=== PATIENT | female | born 1965 | race Caucasian/White ===

== ENCOUNTER 2016-05-31 08:47 | Outpatient (CLI) | payer MEDICARE, MEDICAID ==
[2015-07-14 20:13] VITALS: BP 171/96
[~2016-05-31 08:47] MED LIST: BUPIVACAINE HCL/PF 2.5 MG/ML 10ML VIAL IV ONE; TRIAMCINOLONE ACETONID 40MG/ML VIAL ONE
--- NOTE | 2016-05-31 11:50 | SURGICAL PROCEDURE NOTE PAIN ---
SUBJECTIVE: Shantel follows up with me today at [facility]. 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 She continues to complain of some low back pain with pain over the L5 distribution bilaterally, particularly when she is active. She has had conservative therapy. She has had exercise. She has had nonsteroidal anti-inflammatories and opiate pain medications. Her anxiety and depression are well controlled and she sees a therapist on a regular basis. At this point, she is still seeking additional improvement for back and leg pain. She presents today with an ulnar tunnel entrapment of the left arm and has pain, numbness, and tingling in the forearm, wrist, and hand and into the 4th and 5th digits of the left hand with a positive Tinel's sign at the ulnar canal at the elbow. We will plan today for a left ulnar nerve block at the ulnar tunnel and I have also dispensed some information on a spinal cord stimulator, as I believe that particularly the new burst stimulation mode would be greatly beneficial for her considering she continues to have some lower extremity pain in spite of conservative treatment and interventional treatment. We will dispense information on a neurostimulator today and have her follow up in my office with my physician office services assistant and [facility]. NAME OF PROCEDURE: Left ulnar nerve block at the ulnar tunnel. DESCRIPTION OF PROCEDURE: The risks and benefits were discussed with the patient including the risk of infection, bleeding, nerve injury, and headache, as well as the risks of steroid exposure causing hyperglycemia, hypertension, osteoporosis, or increased infectious risks. The patient understood these risks and agreed to proceed. Consent was obtained prior to the procedure. Patient positioned supine on the fluoroscopic procedure table with her arm raised over the left shoulder. Sterile prep and drape was applied. A number 25 -gauge needle was then advanced at the elbow to the ulnar canal and a small paresthesia was elicited. At this point, the needle was withdrawn a millimeter and an injection of triamcinolone and 0.25% bupivacaine was placed. She did tolerate the procedure well. There were no apparent complications. PLAN: 1. Left ulnar nerve block at the ulnar tunnel. 2. She will follow up in my office in the near future. MARK
== END 2016-05-31 09:00 ==
LOC: OUT 08:47
PROVIDERS: ATTEND Anesthesiology Pain Medicine
DX: G56.22 Lesion of ulnar nerve, left upper limb (principal)
CPT/HCPCS: J3301; J3490; 64450; 99213; G0463

== ENCOUNTER 2016-06-03 15:05 | Outpatient (CLI) | payer MEDICARE, MEDICAID ==
[2015-07-14 20:13] VITALS: BP 171/96
== END 2016-06-03 15:10 ==
LOC: LAB 15:05
PROVIDERS: ATTEND Family Medicine
DX: E11.9 Type 2 diabetes mellitus without complications (principal)
CPT/HCPCS: 36415; 83036

== ENCOUNTER 2016-07-06 07:53 | Emergency (ER) | payer MEDICARE, MEDICAID ==
[2016-07-06] MEDS ORDERED: Lidocaine 1% 5ml(IM or SUTURE)(PAIN CLINIC) IJ ONE (08:13)
--- NOTE | 2016-07-06 08:13 | ED Physician Documentation ---
General Adult - HISTORIAN Historian: patient - HPI Chief Complaint: Abscess Onset: days ago Timing: still present, worse Further Comments: yes (Patient has developed a small skin lesion (pimple) tothe right groin area. Last night was about 1-1 1/2 inches in diameter. This AM was noted to be much larger and tender. No drainage was noted. Patient has had a similar lesion that had to be drained several years ago.) - ROS CONST: fever, chills - PAST HX Past History: asthma Other History: other (atrial tachcardia) Surgeries/Procedures: none Allergies/Adverse Reactions: Allergies Allergy/AdvReac Type Severity Reaction Status Date / Time beclomethasone dipropionate Allergy Mild Unverified 05/30/12 16:24 methylprednisolone Allergy Mild Unverified 05/30/12 16:25 Sulfa (Sulfonamide Allergy Verified 07/14/15 13:56 Antibiotics) cefaclor AdvReac Mild Unverified 05/30/12 16:23 Home Medications: Ambulatory Orders Medication Instructions Recorded Albuterol Sulfate [Proair HFA] 2 puff NS Q6H PRN 07/14/15 Canagliflozin [Invokana] 100 mg PO QDAY 07/14/15 Eszopiclone [Eszopiclone] 3 mg PO HS 07/14/15 Fluticasone Propionate [Flonase 2 spray NS QDAY 07/14/15 Nasal [place]] Hydrochlorothiazide [Hydrodiuril] 12.5 mg PO QDAY 07/14/15 LORazepam [Ativan] 1 mg PO TID 07/14/15 Mirtazapine [Mirtazapine] 45 mg PO HS 07/14/15 Montelukast Sodium [Singulair] 10 mg PO QDAY 07/14/15 Spironolactone [Aldactone] 25 mg PO DAILY 07/14/15 Fluconazole [Diflucan] 150 mg PO QD #2 tablet 07/06/16 Levofloxacin [Levaquin] 500 mg PO D #10 tablet 07/06/16 - SOCIAL HX Smoking History: less than 1 pack/day Drug Use: none - FAMILY HX Family History: No - VITAL SIGNS Vital Signs: Vital Signs Temp Pulse Resp BP Pulse Ox 171/96 07/14/15 20:11 - REVIEWED ASSESSMENTS Nursing Assessment Reviewed: Yes Vitals Reviewed: Yes Procedures Blade Size: 11 I & D Procedure: betadine prep, sterile drapes applied Progress: Skin was prepped with betadine and anesthesia was obtained with 1% Xylocaine. Stab wound was made and purulent material was drained and expressed from the wound. Culture was obtained. Wound was packed with 1/4 inch iodiform gauze, wound dresses with ANJEL, telfa and 4x4s. General Adult Physical Exam - PHYSICAL EXAM GENERAL APPEARANCE: mild distress NECK: normal inspection, thyroid normal, supple. No: lymphadenopathy RESPIRATORY: no resp distress, chest non-tender, breath sounds normal. No: wheezes, rales, rhonchi CVS: reg rate & rhythm, heart sounds normal, equal pulses, no murmur, no gallop , PMI nml ABDOMEN: soft, no organomegaly, normal bowel sounds, no abdominal bruit, no distension, non-tender BACK: normal inspection, no CVA tenderness SKIN: warm/dry, normal color, other (large absess tot he right groin area) NEURO: oriented X3, CN's nml as tested, mood/affect nml, cognition normal Discharge Clincal Impression: Abscess Prescriptions: Fluconazole [Diflucan] 150 mg PO QD #2 tablet Levofloxacin [Levaquin] 500 mg PO D #10 tablet Referrals: Janet Jones MD [Primary Care Provider] - 2 Days Additional Instructions: Change dressing as needed. Have packing changed in two days. Take antibiotics as directed. Take diflucan for yeast infection as directed. Home Medications: Ambulatory Orders Albuterol Sulfate [Proair HFA] 2 puff NS Q6H PRN 07/14/15 Canagliflozin [Invokana] 100 mg PO QDAY 07/14/15 Eszopiclone [Eszopiclone] 3 mg PO HS 07/14/15 Fluticasone Propionate [Flonase Nasal [place]] 2 spray NS QDAY 07/14/15 Hydrochlorothiazide [Hydrodiuril] 12.5 mg PO QDAY 07/14/15 LORazepam [Ativan] 1 mg PO TID 07/14/15 Mirtazapine [Mirtazapine] 45 mg PO HS 07/14/15 Montelukast Sodium [Singulair] 10 mg PO QDAY 07/14/15 Spironolactone [Aldactone] 25 mg PO DAILY 07/14/15 Fluconazole [Diflucan] 150 mg PO QD #2 tablet 07/06/16 Levofloxacin [Levaquin] 500 mg PO D #10 tablet 07/06/16 Condition: Stable Disposition: 01 HOME, SELF-CARE Decision to Admit: NO Date of Decison to Admit: 07/06/16 Decision Time: 08:53
[2016-07-06 10:33] VITALS: BP 132/93
== END 2016-07-06 09:10 | disposition home or self-care (01) ==
LOC: ED 07:53
DX: L02.214 Cutaneous abscess of groin (principal); F17.210 Nicotine dependence, cigarettes, uncomplicated
CPT/HCPCS: 10060; 87070; 99284

== ENCOUNTER 2016-07-08 11:09 | Emergency (ER) | payer MEDICARE, MEDICAID ==
--- NOTE | 2016-07-08 12:01 | ED Physician Documentation ---
General Adult - HISTORIAN Historian: patient - HPI Stated Complaint: cyst in groin Chief Complaint: General Adult Additional Information: pt has abscess rt supra labial area drained and packed by DR VÁZQUEZ 2 days ago placed on levaquin and diflucan - now has satellite abscess ext 6 in diameter supra pubic area w/surrounding erythema. saw DR ALMODOVAR just now rec go to [facility] [place]-pt came here. DR ALMODOVAR called said pt error in insstructions. will facilitate tnsf to [facility] Onset: days ago (5) Timing: still present, worse Severity: moderate Further Comments: yes (CALLED DR HERRERA W/C [facility] HE WILL ACCEPT ED. pt will go pvt auto-her choice-appears appropriate.) - ROS CONST: other (chest wheeze cigarettes-afebrile and vs normal) EYES/ENT: denies: problems with vision CVS/RESP: none GI/: none MS/SKIN/LYMPH: none - PAST HX Past History: hypertension, other Other History: diabetes Type 2, other (ptsd fibromyalgia ptsd anxiety bipolar ua incontinence deg disc ds) Allergies/Adverse Reactions: Allergies Allergy/AdvReac Type Severity Reaction Status Date / Time beclomethasone dipropionate Allergy Mild Unverified 05/30/12 16:24 methylprednisolone Allergy Mild Unverified 05/30/12 16:25 Sulfa (Sulfonamide Allergy Verified 07/14/15 13:56 Antibiotics) cefaclor AdvReac Mild Unverified 05/30/12 16:23 Home Medications: Ambulatory Orders Medication Instructions Recorded Albuterol Sulfate [Proair HFA] 2 puff NS Q6H PRN 07/14/15 Canagliflozin [Invokana] 100 mg PO QDAY 07/14/15 Eszopiclone [Eszopiclone] 3 mg PO HS 07/14/15 Fluticasone Propionate [Flonase 2 spray NS QDAY 07/14/15 Nasal [place]] Hydrochlorothiazide [Hydrodiuril] 12.5 mg PO QDAY 07/14/15 LORazepam [Ativan] 1 mg PO TID 07/14/15 Mirtazapine [Mirtazapine] 45 mg PO HS 07/14/15 Montelukast Sodium [Singulair] 10 mg PO QDAY 07/14/15 Spironolactone [Aldactone] 25 mg PO DAILY 07/14/15 Fluconazole [Diflucan] 150 mg PO QD #2 tablet 07/06/16 Levofloxacin [Levaquin] 500 mg PO D #10 tablet 07/06/16 - SOCIAL HX Smoking History: greater than 1 pack/day Alcohol Use: none Drug Use: none - FAMILY HX Family History: No - VITAL SIGNS Vital Signs: Vital Signs Temp Pulse Resp BP Pulse Ox 97.1 F L 103 H 18 134/90 94 07/08/16 11:24 07/08/16 11:24 07/08/16 11:24 07/08/16 11:24 07/08/16 11:24 - REVIEWED ASSESSMENTS Nursing Assessment Reviewed: Yes Vitals Reviewed: Yes General Adult Physical Exam - PHYSICAL EXAM GENERAL APPEARANCE: moderate distress EENT: eye inspection normal NECK: normal inspection RESPIRATORY: wheezes, rales, rhonchi, other (diminished w/wheerzing -= vs = ok) CVS: reg rate & rhythm, heart sounds normal ABDOMEN: soft, non-tender, other (6 inch abscess supra pubic area tendfer- appears satellite from abscess drained andk packed 2 days ago) BACK: normal inspection SKIN: warm/dry, normal color EXTREMITIES: non-tender NEURO: oriented X3, motor nml, sensation nml, mood/affect nml Discharge Clincal Impression: suprapubic and perineal abscess, diabetes controlled, resp wheeze dt cigarettes and probable a Home Medications: Ambulatory Orders Albuterol Sulfate [Proair HFA] 2 puff NS Q6H PRN 07/14/15 Canagliflozin [Invokana] 100 mg PO QDAY 07/14/15 Eszopiclone [Eszopiclone] 3 mg PO HS 07/14/15 Fluticasone Propionate [Flonase Nasal [place]] 2 spray NS QDAY 07/14/15 Hydrochlorothiazide [Hydrodiuril] 12.5 mg PO QDAY 07/14/15 LORazepam [Ativan] 1 mg PO TID 07/14/15 Mirtazapine [Mirtazapine] 45 mg PO HS 07/14/15 Montelukast Sodium [Singulair] 10 mg PO QDAY 07/14/15 Spironolactone [Aldactone] 25 mg PO DAILY 07/14/15 Fluconazole [Diflucan] 150 mg PO QD #2 tablet 07/06/16 Levofloxacin [Levaquin] 500 mg PO D #10 tablet 07/06/16 Comments: ddisc cond w/ DR ALMODOVAR AND DR BEST [facility] SURGEON-SEND W/C VIA ED-DR BEST WILL NOTIFE AND WE WILL REPORT TO W/C-[facility] Condition: Good Disposition: 02 XFER SHT-TRM HOSP Decision to Admit: [id number] Decision Time: 12:18
[2016-07-08 12:40] VITALS: BP 130/89
== END 2016-07-08 12:25 | disposition short-term general hospital (02) ==
LOC: ED 11:09
DX: N73.2 Unspecified parametritis and pelvic cellulitis (principal)
CPT/HCPCS: 99282; 99284

== ENCOUNTER 2016-08-27 08:05 | Outpatient (CLI) | payer MEDICARE, MEDICAID ==
[2016-08-27 09:23] LABS: eGFR (African) > 60; eGFR (Non-African) > 60
== END 2016-08-27 08:06 ==
LOC: LAB 08:05
PROVIDERS: ATTEND Family Medicine
DX: E11.9 Type 2 diabetes mellitus without complications (principal)
CPT/HCPCS: 36415; 80053; 80061; 83036

== ENCOUNTER 2016-10-12 13:50 | Outpatient (CLI) | payer MEDICARE, MEDICAID | END 2016-10-12 13:52 | LOC: NEPHRO 13:50 | PROVIDERS: ATTEND Internal Medicine Nephrology | DX: R00.0 Tachycardia, unspecified (principal) | CPT/HCPCS: G0463 ==

== ENCOUNTER 2016-11-19 14:07 | Outpatient (CLI) | payer MEDICARE, OTHER ==
[~2016-11-19 14:07] MED LIST changes: +0.9 % SODIUM CHLORIDE PF 10 ML VIAL IJ ONE; -BUPIVACAINE HCL/PF 2.5 MG/ML 10ML VIAL IV ONE; +Lidocaine 1% 5ml(IM or SUTURE)(PAIN CLINIC) ONE
--- NOTE | 2016-11-23 08:54 | LESI WITH FLUORO ---
SUBJECTIVE: Shea follows up with me today with intractable low back pain and lower extremity pain for palliative treatment. We would still like to perform a placement of a trial neurostimulator. For today, I am going give her a palliative epidural steroid injection. She could not tolerate [place], so she has been restarted on [place]. Plan today for a right L5-S1 epidural injection under fluoroscopy. OPERATIVE PROCEDURE: Right L5-S1 epidural steroid injection with fluoroscopic guidance. DESCRIPTION OF PROCEDURE: The risks and benefits were discussed with the patient including the risk of infection, bleeding, nerve injury, and headache, as well as the risks of steroid exposure causing hyperglycemia, hypertension, osteoporosis, or increased infectious risks. The patient understood these risks and agreed to proceed. Consent was obtained prior to the procedure. The patient was placed in the prone position on the fluoroscopy table with a pillow underneath the abdomen to afford anterior flexion of the lumbar spine. The low back was cleaned and a sterile drape was applied. An 18-gauge thin wall Tuohy epidural needle was advanced with normal saline loss of resistance technique and direct fluoroscopic guidance with a right paramedian approach at the L5-S1 level. On obtaining loss of resistance to normal saline, it was verified that there was no aspiration of CSF or blood. Furthermore, the needle tip location was verified with lateral and AP fluoroscopic views. Omnipaque 240 myelogram dye were injected through the epidural needle. The distribution of the dye was noted to be within the desired distribution within the lumbar epidural space. The patient did report some reproduction of the low back and / or lower extremity pain symptoms; this reproduction of symptoms was short- lived. Triamcinolone acetate and 1% lidocaine was injected into the epidural space. The stylet was replaced in the needle and the needle was removed from the back. The patient tolerated the procedure well. The back was cleaned and a bandage was applied over the injection site. The patient was monitored for 20 minutes following the procedure. during this time the vital signs remained stable and the patient experienced no adverse sequelae. The patient was discharged in good condition. ASSESSMENT: PLAN: Right L5-S1 epidural steroid injection with fluoroscopic guidance. FOLLOWUP: Follow up next month with my physician anatomic pathology assistant (THANIA). cc: Dr. Janet FLORES
== END 2016-11-19 14:10 ==
LOC: OUT 14:07
PROVIDERS: ATTEND Anesthesiology Pain Medicine
DX: M54.5 Low back pain (principal); M79.605 Pain in left leg; M79.604 Pain in right leg
CPT/HCPCS: J3301; Q9966; 62323; 99213; G0463

== ENCOUNTER 2017-01-17 11:34 | Outpatient (CLI) | payer MEDICARE, OTHER ==
[~2017-01-17 11:34] MED LIST changes: -0.9 % SODIUM CHLORIDE PF 10 ML VIAL IJ ONE; +BUPIVACAINE HCL/PF 2.5 MG/ML 10ML VIAL IV ONE; -Lidocaine 1% 5ml(IM or SUTURE)(PAIN CLINIC) ONE
--- NOTE | 2017-01-18 08:51 | SURGICAL PROCEDURE NOTE PAIN ---
REASON FOR VISIT: Shea follows up with me today. Her back pain has improved. She is having pain down her left arm. She has a history of ulnar neuralgia and had good results with previous ulnar nerve block at the ulnar tunnel. I will plan to repeat that injection for her today. PROCEDURE: Left ulnar nerve block at ulnar tunnel. DESCRIPTION OF PROCEDURE: The risks and benefits were discussed with the patient including the risk of infection, bleeding, nerve injury, and headache, as well as the risks of steroid exposure causing hyperglycemia, hypertension, osteoporosis, or increased infectious risks. The patient understood these risks and agreed to proceed. Consent was obtained prior to the procedure. Patient was placed supine on procedure table and the medial epicondyle was palpated and identified, along with the ulnar tunnel. A 22-gauge needle was then positioned proximal to the medial epicondyle and the needle was inserted distally into the ulnar canal. A paresthesia was obtained and the needle was withdrawn and the medication was injected. The patient tolerated the procedure well. There were no apparent complications. ASSESSMENT: 1. Ulnar neuralgia. 2. Ulnar tunnel syndrome. FOLLOW UP: Return to clinic if problems develop or worsen. cc: Dr. Janet FLORES
== END 2017-01-17 11:35 ==
LOC: OUT 11:34
PROVIDERS: ATTEND Anesthesiology Pain Medicine
DX: G58.8 Other specified mononeuropathies (principal); G56.22 Lesion of ulnar nerve, left upper limb
CPT/HCPCS: J3301; J3490; 20605; 99213; G0463

== ENCOUNTER 2017-01-18 10:24 | Outpatient (CLI) | payer MEDICARE, OTHER | END 2017-01-18 10:25 | LOC: LAB 10:24 | PROVIDERS: ATTEND Family Medicine | DX: E11.9 Type 2 diabetes mellitus without complications (principal) | CPT/HCPCS: 36415; 83036 ==

== ENCOUNTER 2018-02-21 14:45 | Outpatient (CLI) | payer MEDICARE, OTHER | END 2018-02-21 14:46 | LOC: NEPHRO 14:45 | PROVIDERS: ATTEND Internal Medicine Nephrology | DX: E11.9 Type 2 diabetes mellitus without complications (principal); I10 Essential (primary) hypertension; R80.9 Proteinuria, unspecified | CPT/HCPCS: G0463 ==

== ENCOUNTER 2018-03-29 15:15 | Outpatient (CLI) | payer MEDICARE, OTHER ==
--- NOTE | 2018-04-04 13:49 | OP Clinic Progress Note ---
REASON FOR VISIT: This 52-year-old lady is seen by herself in the clinic. She has had ear pressure and discomfort a little more in the left than on the right and it began with the left side. She took a course of azithromycin which is quite appropriate and tends to be fairly good for the sinuses but she did not get particularly improved. She has a prescription for a prednisone pack that she is going to be starting later today. She gave some history that her mouth had huge amounts of infections maybe sometime over the last year and she lost all of her teeth. She is quite significantly bothered by the pressure in both ears. She has nasal congestion and stuffiness. Both ear canals are clear. Both eardrums are markedly and significantly retracted with some increased erythema. There is a small amount of fluid in the left ear. With her symptoms, might suggest a lot of fluid behind the eardrums, significantly a Eustachian tube dysfunction problem, posterior pharyngitis, and rhinitis. PLAN: Overall, the symptoms seem maybe a little more viral than they are bacterial. In this regard, I have given her a prescription for Valtrex 1 gram a day for 2 weeks. I gave her 1 week of amoxicillin 500 mg t.i.d. She tends to get fairly nasty vaginitis with antibiotics, and I gave her a prescription for Diflucan which she has taken in the past. I still might look at this in a couple of weeks. If it still persists, we can put small tubes in the ears but, at this point, I would still continue to treat it medically. The general picture is Eustachian tube dysfunction, diffuse rhinitis, and significant pressure and discomfort in both ears. cc: Dr. Janet FLORES
== END 2018-03-29 15:16 ==
LOC: ENT 15:15
PROVIDERS: ATTEND Otolaryngology
DX: H69.90 Unspecified Eustachian tube disorder, unspecified ear (principal); J31.0 Chronic rhinitis; H92.03 Otalgia, bilateral
CPT/HCPCS: 99203; G0463

== ENCOUNTER 2018-04-12 14:14 | Outpatient (CLI) | payer MEDICARE, OTHER ==
--- NOTE | 2018-04-19 11:30 | OP Clinic Progress Note ---
REASON FOR VISIT: Shea is seen in follow up for a general variety of different complaints including nasal congestion and stuffiness and some ear pressure and postnasal drainage. She had been given a course of amoxicillin previously and had some symptoms of viral difficulties and last time I gave Valtrex, as she was getting some vaginitis maybe associated with the amoxicillin and she took Diflucan. Among the attack on microbes, including viral bacteria and fungals, patient feels significantly better. It is certainly difficult to tell what antimicrobe benefited her the most of the combination. The nose is quite clear of any type of purulence. The ear canals are clear. Both eardrums are clear. They both have a little bit of pressure but there is no hole, fluid, nor severe inflammation. Mild Eustachian tube dysfunction which is also consistent with her mild rhinitis. PLAN: She has used Flonase for 4 or 5 years. She always uses a saline nasal rinse. I think it is a good idea to try being off the Flonase for about 2 weeks trying to pay close attention to whether there is any aggravation of her symptoms. If she feels like she is getting worse, she could go back on the Flonase at any point in time at her election but a trial off of it might benefit her rhinitis in addition. Patient should return to the care of Dr. Jones. cc: Dr. Janet FLORES
== END 2018-04-12 14:15 ==
LOC: ENT 14:14
PROVIDERS: ATTEND Otolaryngology
DX: H69.90 Unspecified Eustachian tube disorder, unspecified ear (principal); J31.0 Chronic rhinitis
CPT/HCPCS: 99212; G0463

== ENCOUNTER 2018-05-10 15:59 | Outpatient (CLI) | payer MEDICARE, OTHER ==
[2018-05-11 12:38] LABS: SOURCE: SWAB IN VTM
== END 2018-05-10 16:00 ==
LOC: LABRHC 15:59
PROVIDERS: ATTEND Family Medicine
DX: R05 Cough (principal)
CPT/HCPCS: 87486; 87581; 87633; 87798

== ENCOUNTER 2018-07-24 10:31 | Inpatient (IN) | payer MEDICARE, OTHER ==
[2018-07-24 10:49] VITALS: BMI 79.1
[2018-07-24] MEDS ORDERED: INSULIN REGULAR, HUMAN 100 UNIT/ML 3ML VIAL IV ONE (11:11)
[2018-07-24] MEDS ORDERED: 0.9 % SODIUM CHLORIDE 1,000 ML IV ONE (11:12)
[2018-07-24] MEDS ORDERED: predniSONE 20 MG TABLET PO SCH (12:00)
--- NOTE | 2018-07-24 12:07 | History and Physical Report ---
History of Present Illnes - History of Present Illness Reason for Visit: Shortness of Breath, Hyperglycemia, Suspected Infection History of Present Illness: Patient is a 53-year-old female that was seen at the clinic today with c/o "not feeling well". She stated that she had been having chest congestion for the last week and she tries to cough but can't cough anything up- however, the last 2 days she has been coughing up thick greenish lawrence mucous. She feels like it is settling in her chest. She has been unable to sleep flat all week and has been positioning herself on multiple pillows. She states that she has tried multiple OTC cough & cold meds with not relief. She has been using her nebulizer every 2-4 hours and still feels like she cannot breath. Upon admission her blood sugar was reading HIGH. Lab results revealed a blood sugar of > 500. Patient states that she has been taking her medications but has not had much of an appetite so has not been using her insulin as directed because of fatigue. ABG was completed and did not reveal DKA. Blood sugars may be elevated due to infection. Will get xray and lab work. - Past Medical History Cardiac: HTN, Hyperlipidemia Pulmonary: Asthma Psych: Anxiety, Bipolar, Depression Musculoskeletal: Chronic low back pain, Osteoarthritis, Other (DDD with bilateral sciatica) Rheumatologic: Fibromyalgia Endocrine: Diabetes - Past Surgical History Past Surgical History: Cholecystectomy, Other (Right wrist with titanium) - Past Family History Mother Family History: Other (she is adopted) Father Family History: Other (adopted) - Past Social History Smoke: <1 pack per day Occupation: Disabled Alcohol: Rare Drugs: None Lives: Alone Domestic Violence: Negative - Health Maintenance Health Maintenance: Influenza Vaccine, Pneumococcal Vaccine Influenza Vaccine: Current for this Influenza Season Pneumonia Vaccine: Yes Resuscitation Status: Resusciation Status Resuscitation Status Do Not Resuscitate - Unable to Obtain History Unable to Obtain: No Review of Systems - Review of Systems Constitutional: Fever, Chills, Weakness Eyes: negative: conjunctivae inflammation, eyelid inflammation ENT: Nose Discharge, Throat Pain (postnasal discharge) Respiratory: Cough, Shortness of Breath, SOB with Excertion, Sputum Cardiovascular: Light Headedness (after couging spells) Gastrointestinal: Nausea. negative: Vomiting, Abdominal Pain Genitourinary: Other (decreased urinary output- pt feels dehydrated) Musculoskeletal: negative: Back Pain Skin: negative: Rash Neurological: Weakness - Medications/Allergies Allergies/Adverse Reactions: Allergies Allergy/AdvReac Type Severity Reaction Status Date / Time No Known Allergies Allergy Verified 07/24/18 15:25 Home Medications: Home Medications Fluconazole [Diflucan] 150 mg PO QD 07/24/18 Lurasidone HCl [Latuda] 40 mg PO DAILY 07/24/18 Metoprolol Tartrate 100 mg PO BID 07/24/18 Current Inpatient Medications: Current Inpatient Medications Albuterol/Ipratropium (Duoneb) 3 ml NEB Q4 [facility] Budesonide (Pulmicort) 0.5 mg NEB BID [facility] Fluconazole (Diflucan) 150 mg PO DAILY [facility] Sodium Chloride (Normal Saline) 1,000 mls @ 1,000 mls/hr IV Q1H ONE Stop: 07/24/18 12:11 Azithromycin 500 mg/ Sodium (Chloride) 250 mls @ 125 mls/hr IV Q24H EMEKA Stop: 08/03/18 14:59 Ceftriaxone Sodium 1 gm/ (Sodium Chloride) 50 mls @ 100 mls/hr IV DAILY [facility] Insulin Human Regular (Humulin R) 0 unit [facility]; Protocol Methylprednisolone Sodium Succinate (Solu-Medrol) 80 mg IVP Q12 [facility] Miscellaneous (Chem Sticks) 1 each CHEMD [facility] Exam - Exam Vital Signs: Vital Signs (72 hours) 07/24/18 07/24/18 10:34 10:47 Temperature 97.3 F L 97.3 F L Pulse Rate [ 115 H 115 H Right] Respiratory 20 20 Rate Blood Pressure 152/127 152/127 [Right Arm] O2 Sat by Pulse 94 94 Oximetry General: Alert, Oriented to Person, Oriented to Place, Oriented to Time, Cooperative, Mild distress, Obese HEENT: PERRLA, Other (dry mucous membranes) Neck: Normal Range of Motion Carotids: No bruit Lungs: Speaks full Sentences, Rhonchi (scattered throughout) Cardiovascular: Normal S1, Normal S2, Tachycardia Abdomen: Normal bowel sounds, Soft, No tenderness Integumentary: Warm, Dry, Pale Extremities: No edema, Normal pulses, No tenderness/swelling Neurological: Normal gait, Normal speech, Strength Equal Bilat, Sensation intact, Generalized Weakness Psych/Mental Status: Mental status NL, Mood NL, Appropriate Affect Assessment/Plan - Assessment/Plan (1) Respiratory infection Status: Acute Plan: Will treat as pneumonia- will get labs, blood cultures x 2, HFN treatments every 4 hours scheduled, use of incentive spirometer every 4 hours and IV antibiotics x 2 (2) COPD (chronic obstructive pulmonary disease) Status: Acute Qualifiers: COPD type: emphysema Emphysema type: unspecified Qualified Code(s): J43.9 - Emphysema, unspecified Plan: HFN tx's every 4 hours scheduled, IV steroids every 12 hours, use of incentive spirometer every 4 hours (3) Type 2 diabetes mellitus Status: Acute Qualifiers: Diabetes mellitus group home insulin use: with termite renewal inspector use Diabetes mellitus complication status: with hyperglycemia Qualified Code(s): E11.65 - Type 2 diabetes mellitus with hyperglycemia; Z79.4 - technician terminal and repeater (current) use of insulin Plan: With blood sugar reading "HIGH"- we will give 1 liter of NS bolus and 10 units of regular insulin IV. Since ABG does not show DKA we will now start SSI and monitor. After liter bolus we will start NS with 40 meq of KCL at 125 ml/hr due to low Potassium. (4) Hypertension Status: Acute Qualifiers: Hypertension type: essential hypertension Qualified Code(s): I10 - Essential (primary) hypertension Plan: Patient is extremely hypertensive- will give Hydralazine 10 mg IV and start home medications. Will montor BP every 4 hrs and prn VTE Assessment - RISK FACTOR SCORE VTE RISK FACTOR SCORES: AGE 40-60 YEARS, OBESITY, SMOKER (Lovenox daily)
--- NOTE | 2018-07-24 12:08 | Diagnostic Imaging Report ---
FARSHAD SALES [facility] [address] [address] [facility] [address] [place], [place]. [address] Report Submission Date: Jul 24, 2018 11:53:07 AM CDT Patient Study Name: QAMAR LIU Date: Jul 24, 2018 11:17:35 AM CDT Modality Type: DX Gender: F Description: CHEST 2VIEW : 67 Institution: [facility] Physician: FARSHAD SALES Examination: PA and lateral chest. History: Evaluate lung toure. Comparison exam: None provided. Findings: PA and lateral views of the chest demonstrates a normal cardiac and mediastinal silhouette. Mildly tortuous aorta. No focal infiltrate. No blunting of the costophrenic margins. Left lower lung granuloma. Osseous structures are appropriate for age. Impression: No acute pulmonary process. Left lower lung granuloma. Electronically signed on Jul 24, 2018 11:53:07 AM CDT by: Jb FLORES
[2018-07-24 12:12] LABS: eGFR (Non-African) > 60
[2018-07-24 12:15] LABS: ABG BASE EXCESS 0.08 (-2 - +2); ABG PH 7.39 (7.35-7.45)
[2018-07-24 12:25] LABS: MEAN CORPUSCULAR HEMOGLOBIN 32.5 pg (28.0-34.0)
[2018-07-24 12:26] LABS: BASOPHILS % 0 % (0-2); EOSINOPHILS % 0 % (0-7); MONOCYTES % 3 % (0-11); SEGMENTED NEUTROPHILS % 45 % (39-79)
[2018-07-24 12:27] LABS: ANISOCYTOSIS 1+ (NEGATIVE); HYPOCHROMASIA 1+ (NEGATIVE); SMUDGE CELLS 2 #PER 100 (0-0); TOXIC GRANULATION PRESENT
[2018-07-24 12:28] LABS: PLT EST. EST. AGREES W/PLT CT
[2018-07-24] MEDS: INSULIN REGULAR, HUMAN 100 UNIT/ML 3ML VIAL SQ SCH ×3 (12:30→21:21)
[2018-07-24 12:34] LABS: APPEARANCE,URINE CLEAR (CLEAR); COLOR,URINE YELLOW (YELLOW)
[2018-07-24 12:35] LABS: OCCULT BLOOD,URINE NEGATIVE (NEGATIVE); PH URINE 6.5 (5.0 - 8.0); UROBILINOGEN URINE 0.2 Eu (0.2-1.0)
[2018-07-24] MEDS: IPRATROPIUM/ALBUTEROL SULFATE 3 ML AMPUL.NEB NEB SCH ×4 (12:45→20:56)
[2018-07-24] MEDS: BUDESONIDE 0.5MG/2ML AMPUL.NEB NEB SCH ×2 (12:45→20:47)
[2018-07-24] MEDS ORDERED: cefTRIAXone SODIUM 1 GM INJ ONE (13:32)
[2018-07-24] MEDS ORDERED: 0.9 % SODIUM CHLORIDE(MINIBAG+ 50 ML IV ONE (13:32)
[2018-07-24] MEDS: cefTRIAXone SODIUM 1 GM in 0.9 % SODIUM CHLORIDE(MINIBAG+ 50 ML IV SCH (13:38)
[2018-07-24] MEDS: POTASSIUM CHLORIDE 40 MEQ/NS 1,000 ML IV SCH ×3 (13:39→23:00)
[2018-07-24] MEDS ORDERED: hydrALAZINE HCL 20 MG/1 ML IVP ONE (14:42)
[2018-07-24] MEDS: AZITHROMYCIN 500 MG in 0.9 % SODIUM CHLORIDE 250 ML IV SCH (15:54)
[2018-07-24] MEDS: LISINOPRIL 10 MG TABLET PO SCH (16:52)
[2018-07-24] MEDS ORDERED: GABAPENTIN 300 MG CAPSULE ONE (19:42)
[2018-07-24] MEDS ORDERED: MIRTAZAPINE 15 MG TABLET PO ONE (19:42)
[2018-07-24] MEDS ORDERED: METOPROLOL TARTRATE 50 MG TABLET ONE (19:43)
[2018-07-24] MEDS ORDERED: GABAPENTIN 100 MG CAPSULE ONE (19:44)
[2018-07-24] MEDS: methylPREDNISolone SOD SUCC 40 MG/ML VIAL IVP SCH (20:38)
[2018-07-24] MEDS ORDERED: IBUPROFEN 400 MG TABLET PO PRN (21:00)
[2018-07-24] MEDS: MIRTAZAPINE 15 MG TABLET PO SCH (21:20)
[2018-07-24] MEDS: GABAPENTIN 100 MG CAPSULE PO SCH (21:20)
[2018-07-24] MEDS: GABAPENTIN 300 MG CAPSULE PO SCH (21:20)
[2018-07-24] MEDS: METOPROLOL TARTRATE 50 MG TABLET PO SCH (21:20)
[2018-07-24] MEDS: PANTOPRAZOLE SODIUM 40 MG TABLET.DR PO SCH (21:23)
[2018-07-24] MEDS: ATORVASTATIN CALCIUM 20 MG TABLET PO SCH (21:23)
[2018-07-25] MEDS: IPRATROPIUM/ALBUTEROL SULFATE 3 ML AMPUL.NEB NEB SCH ×6 (00:59→20:41)
--- NOTE | 2018-07-25 07:21 | Inpatient Progress Note ---
Subjective - Required Recertification Statement I anticipate X number of days because-include discharge plan: 1 - Review of Systems Events since last encounter: Patient states that she is feeling better but still gets really short of breath with exertion- she states her cough is about the same but feels that it is starting to break up. Blood sugars are still running greater than 200 but improving with sliding scale insulin. We will continue with HFN tx every 4 hours, IV antibiotics x 2. We will stop IVFs to prevent overload since she is drinking well. General: Fatigue HEENT: Sinus Congestion, Post Nasal Drip Pulmonary: Dyspnea (with exertion), Cough Cardiovascular: Denies: Chest Pain, Light Headedness Gastrointestinal: Denies: Nausea, Vomiting Genitourinary: Denies: Dysuria Musculoskeletal: Denies: Back Pain Neurological: Weakness Objective - Exam Vitals and I&O: Vital Signs Temp 97.3 F L 07/25/18 06:00 Pulse 76 07/25/18 06:00 Resp 16 07/25/18 06:00 BP 153/77 07/25/18 06:00 Pulse Ox 98 07/25/18 06:00 Intake & Output 07/24/18 07/24/18 07/25/18 11:59 23:59 11:59 Intake Total 2380 360 Output Total 1400 2800 Balance 980 -2440 Weight 236 kg Intake: Oral 2380 360 Output: Urine 1400 2800 Other: Voiding Method Toilet Toilet Toilet # Voids 3 # Bowel Movements 0 General: Alert, Oriented to Person, Oriented to Place, Oriented to Time, Cooperative, No acute distress, Obese HEENT: PERRLA, Mouth Mucous membr. moist/[place], Nose Mucous membr. moist/[place] Neck: Supple, +2 carotid pulse wo bruit Lungs: Normal air movement, Speaks full Sentences, Rhonchi Cardiovascular: Regular rate, Normal S1, Normal S2 Abdomen: Normal bowel sounds, Soft, No tenderness Extremities: No edema, Normal pulses, No tenderness/swelling Skin: Normal, [place], Warm, Dry Neurological: Normal speech, Strength Equal Bilat, Sensation intact, Generalized Weakness Psych/Mental Status: Mental status NL, Mood NL, Appropriate Affect - Results Results: Laboratory Results WBC 5.30 K/ul (4.00-12.00) 07/24/18 10:59 RBC 4.85 M/ul (3.90-5.20) 07/24/18 10:59 Hgb 15.8 g/dL (12.0-16.0) 07/24/18 10:59 Hct 47.4 % (34.5-46.5) H 07/24/18 10:59 MCV 98.0 fl (80.0-100.0) 07/24/18 10:59 MCH 32.5 pg (28.0-34.0) 07/24/18 10:59 MCHC 33.3 g/dL (30.0-36.0) 07/24/18 10:59 RDW 12.8 % (11.3-14.3) 07/24/18 10:59 Plt Count 235 K/mm3 (130-400) 07/24/18 10:59 Seg Neutrophils % 45 % (39-79) 07/24/18 10:59 Band Neutrophils % 7 % (0-12) 07/24/18 10:59 Lymphocytes % 33 % (16-50) 07/24/18 10:59 Monocytes % 3 % (0-11) 07/24/18 10:59 Eosinophils % 0 % (0-7) 07/24/18 10:59 Basophils % 0 % (0-2) 07/24/18 10:59 Metamyelocytes % 2 % (0-0) H 07/24/18 10:59 Myelocytes % 2 % (0-0) H 07/24/18 10:59 Reactive Lymphocytes 8 % (0-5) H 07/24/18 10:59 Smudge Cells 2 #PER 100 (0-0) H 07/24/18 10:59 Toxic Granulation Present 07/24/18 10:59 Platelet Estimate Est. agrees w/plt ct 07/24/18 10:59 Hypochromasia 1+ (NEGATIVE) H 07/24/18 10:59 Poikilocytosis 1+ (NEGATIVE) H 07/24/18 10:59 Anisocytosis 1+ (NEGATIVE) H 07/24/18 10:59 Macrocytosis 1+ (NEGATIVE) H 07/24/18 10:59 pH 7.39 (7.35-7.45) 07/24/18 11:30 pCO2 43 mmhg (35-48) 07/24/18 11:30 pO2 59 mmhg (83-108) L 07/24/18 11:30 HCO3 25.3 Meq/L (21-28) 07/24/18 11:30 ABG O2 Sat Calc/Sajan 93 % (93-100) 07/24/18 11:30 ABG Base Excess 0.08 (-2 - +2) 07/24/18 11:30 Sodium 134 mmol/L (136-145) L 07/24/18 10:59 Potassium 3.4 mmol/L (3.5-5.1) L 07/24/18 10:59 Chloride 92 mmol/L (98-107) L 07/24/18 10:59 Carbon Dioxide 26 mmol/L (22-30) 07/24/18 10:59 BUN 8 mg/dL (7-17) 07/24/18 10:59 Creatinine 0.71 mg/dL (0.52-1.04) 07/24/18 10:59 Estimated Creat Clear 406 07/24/18 10:59 Est GFR ( Amer) > 60 (60-) 07/24/18 10:59 Est GFR (Non-Af Amer) > 60 (60-) 07/24/18 10:59 Glucose 559 mg/dL (74-106) H 07/24/18 10:59 Calcium 9.2 mg/dL (8.4-10.2) 07/24/18 10:59 Total Bilirubin 0.3 mg/dL (0.2-1.3) 07/24/18 10:59 AST 28 U/L (15-46) 07/24/18 10:59 ALT 17 U/L (13-69) 07/24/18 10:59 Alkaline Phosphatase 110 U/L (38-126) 07/24/18 10:59 Total Protein 8.2 g/dL (6.3-8.2) 07/24/18 10:59 Albumin 4.0 g/dL (3.5-5.0) 07/24/18 10:59 Urine Color Yellow (YELLOW) 07/24/18 12:21 Urine Appearance Clear (CLEAR) 07/24/18 12:21 Urine pH 6.5 (5.0 - 8.0) 07/24/18 12:21 Ur Specific [place] 1.010 (1.010-1.030) 07/24/18 12:21 Urine Protein Negative mg/dL (NEGATIVE) 07/24/18 12:21 Urine Ketones 1+ mg/dL (NEGATIVE) H 07/24/18 12:21 Urine Occult Blood Negative (NEGATIVE) 07/24/18 12:21 Urine Nitrite Negative (NEGATIVE) 07/24/18 12:21 Urine Bilirubin Negative (NEGATIVE) 07/24/18 12:21 Urine Urobilinogen 0.2 Eu (0.2-1.0) 07/24/18 12:21 Ur Leukocyte Esterase Negative (NEGATIVE) 07/24/18 12:21 Urine Glucose 2+ mg/dL (NEGATIVE) H 07/24/18 12:21 Influenza Type A Ag Negative (NEGATIVE) 07/24/18 12:21 Influenza Type B Ag Negative (NEGATIVE) 07/24/18 12:21 Assessment/Plan - Assessment/Plan (1) Respiratory infection Status: Acute Current Visit: Yes Assessment: Harsh cough, rhonchi throughout, Plan: Will continue with IV antibiotics x2, HFN every 4 hours, Incentive spirometry, will continue to get blood sugars controlled with sliding scale insulin (2) COPD (chronic obstructive pulmonary disease) Status: Acute Current Visit: Yes Qualifiers: COPD type: emphysema Emphysema type: unspecified Qualified Code(s): J43.9 - Emphysema, unspecified Plan: Will continue with IV steroids, IV antibiotics x 2, HFN every 4 hours, Incentive spirometry (3) Type 2 diabetes mellitus Status: Acute Current Visit: Yes Qualifiers: Diabetes mellitus terminal clerk insulin use: with jail use Diabetes mellitus complication status: with hyperglycemia Qualified Code(s): E11.65 - Type 2 diabetes mellitus with hyperglycemia; Z79.4 - intermodal dispatcher (current) use of insulin Assessment: Blood sugars are down to the 200s- no symptoms of hyper/hypo glycemia Plan: Will continue with sliding scale insulin (4) Hypertension Status: Acute Current Visit: Yes Qualifiers: Hypertension type: essential hypertension Qualified Code(s): I10 - Essential (primary) hypertension Assessment: Blood pressures appear to be stable Plan: will continue with home medications
[2018-07-25] MEDS: PANTOPRAZOLE SODIUM 40 MG TABLET.DR PO SCH ×2 (07:37→17:08)
[2018-07-25] MEDS: INSULIN REGULAR, HUMAN 100 UNIT/ML 3ML VIAL SQ SCH ×4 (07:42→20:31)
[2018-07-25] MEDS ORDERED: methylPREDNISolone SOD SUCC 125 MG/2 ML VIAL ONE (08:21)
[2018-07-25] MEDS: cefTRIAXone SODIUM 1 GM in 0.9 % SODIUM CHLORIDE(MINIBAG+ 50 ML IV SCH (08:35)
[2018-07-25] MEDS: methylPREDNISolone SOD SUCC 40 MG/ML VIAL IVP SCH ×2 (08:36→20:27)
[2018-07-25] MEDS: VENLAFAXINE HCL 37.5 MG CAP.ER.24H PO SCH (08:43)
[2018-07-25] MEDS: SPIRONOLACTONE 25 MG TABLET PO SCH (08:43)
[2018-07-25] MEDS: FLUCONAZOLE 150 MG TABLET PO SCH (08:43)
[2018-07-25] MEDS: TOLTERODINE TARTRATE 2 MG CAP.ER.24H PO SCH (08:43)
[2018-07-25] MEDS: HYDROCHLOROTHIAZIDE 25 MG TABLET PO SCH (08:44)
[2018-07-25] MEDS: GABAPENTIN 300 MG CAPSULE PO SCH ×4 (08:45→20:23)
[2018-07-25] MEDS: METOPROLOL TARTRATE 50 MG TABLET PO SCH ×2 (08:45→20:23)
[2018-07-25] MEDS: MONTELUKAST SODIUM 10 MG TABLET PO SCH (08:47)
[2018-07-25] MEDS: LISINOPRIL 10 MG TABLET PO SCH (08:47)
[2018-07-25] MEDS: GABAPENTIN 100 MG CAPSULE PO SCH ×4 (08:47→20:24)
[2018-07-25] MEDS: LURASIDONE HCL (NF) 40 MG TABLET PO SCH (08:48)
[2018-07-25] MEDS ORDERED: 0.9 % SODIUM CHLORIDE 100 ML IV ONE (08:55)
[2018-07-25] MEDS ORDERED: POTASSIUM CHLORIDE 20 MEQ TABLET.ER PO SCH (09:00)
[2018-07-25] MEDS: BUDESONIDE 0.5MG/2ML AMPUL.NEB NEB SCH ×2 (09:00→20:46)
[2018-07-25 10:00] LABS: MEAN CORPUSCULAR HEMOGLOBIN 31.9 pg (28.0-34.0)
[2018-07-25 10:01] LABS: BASOPHILS % 1.4 (0.0-1.5); EOSINOPHILS % 0.7 % (0.0-6.8); MONOCYTES % 3.7 % (0.0-11.0); NEUTROPHILS # 7.3 # k/uL (1.4-7.7)
[2018-07-25 10:16] LABS: eGFR (Non-African) > 60
[2018-07-25] MEDS: POTASSIUM CHLORIDE 40 MEQ/NS 1,000 ML IV SCH (15:02)
[2018-07-25] MEDS: AZITHROMYCIN 500 MG in 0.9 % SODIUM CHLORIDE 250 ML IV SCH (15:24)
[2018-07-25] MEDS: ATORVASTATIN CALCIUM 20 MG TABLET PO SCH (20:21)
[2018-07-25] MEDS: MIRTAZAPINE 15 MG TABLET PO SCH (20:25)
[2018-07-26] MEDS: IPRATROPIUM/ALBUTEROL SULFATE 3 ML AMPUL.NEB NEB SCH ×3 (01:30→08:27)
[2018-07-26] MEDS: PANTOPRAZOLE SODIUM 40 MG TABLET.DR PO SCH (06:07)
[2018-07-26] MEDS: INSULIN REGULAR, HUMAN 100 UNIT/ML 3ML VIAL SQ SCH ×2 (07:20→11:45)
[2018-07-26] MEDS ORDERED: methylPREDNISolone SOD SUCC 125 MG/2 ML VIAL ONE (08:20)
[2018-07-26] MEDS: cefTRIAXone SODIUM 1 GM in 0.9 % SODIUM CHLORIDE(MINIBAG+ 50 ML IV SCH (08:30)
[2018-07-26] MEDS: methylPREDNISolone SOD SUCC 40 MG/ML VIAL IVP SCH (08:30)
--- NOTE | 2018-07-26 08:39 | Discharge Summary ---
Discharge Summary - Discharge Sumary Date: 07/26/18 History of Present Illness: Patient is a 53-year-old female that was seen at the clinic today with c/o "not feeling well". She stated that she had been having chest congestion for the last week and she tries to cough but can't cough anything up- however, the last 2 days she has been coughing up thick greenish lawrence mucous. She feels like it is settling in her chest. She has been unable to sleep flat all week and has been positioning herself on multiple pillows. She states that she has tried multiple OTC cough & cold meds with not relief. She has been using her nebulizer every 2-4 hours and still feels like she cannot breath. Upon admission her blood sugar was reading HIGH. Lab results revealed a blood sugar of > 500. Patient states that she has been taking her medications but has not had much of an appetite so has not been using her insulin as directed because of fatigue. ABG was completed and did not reveal DKA. Blood sugars may be elevated due to infection. Will get xray and lab work. Condition at Discharge: Stable Home Medications: Ambulatory Orders Medication Instructions Recorded Albuterol Sulfate [Proair HFA] 2 puff NS Q6H PRN 07/14/15 Canagliflozin [Invokana] 100 mg PO QDAY 07/14/15 Fluticasone Propionate [Flonase 2 spray NS BID 07/14/15 Nasal [place]] Hydrochlorothiazide [Hydrodiuril] 12.5 mg PO QDAY 07/14/15 Mirtazapine 45 mg PO HS 07/14/15 Spironolactone [Aldactone] 25 mg PO DAILY 07/14/15 Fluconazole [Diflucan] 150 mg PO QD 07/24/18 Lurasidone HCl [Latuda] 40 mg PO DAILY 07/24/18 Metoprolol Tartrate 100 mg PO BID 07/24/18 Budesonide/Formoterol Fumarate 2 puff IH BID #1 hfa.aer.ad 07/26/18 [Symbicort 80-4.5 Mcg Inhaler] Cefuroxime Axetil [Ceftin] 250 mg PO BID #20 tablet 07/26/18 predniSONE [Deltasone] 20 mg PO DAILY #5 tablet 07/26/18 Consultations this Visit: None Procedures this Visit: None Allergies/Adverse Reactions: Allergies Allergy/AdvReac Type Severity Reaction Status Date / Time No Known Allergies Allergy Verified 07/24/18 15:25 Discharge Summary: Patient is a 53-year-old female that was admitted for Exac. COPD, Pneumonia, and hyperglycemia. Patient was treated with IV antibiotics, HFNs every 4 hours, IV steroids, and sliding scale insulin. Patient states that she is really going to try to quit smoking. She will continue on oral antibiotics twice a day for 10 days, prednisone 20 mg daily for 5 days, and will start on Spiriva 2 inh. BID. She is to follow up with PCP next week. Work excuse was given- pt feels ready to go home. We discussed monitoring her diet closely and taking her insulin as directed. Patient states that she was going to try harder on her diet. Hospital Course: IV antibiotics, HFNs every 4 hours, IS, IV steroids, SSI - Final Diagnosis (1) Respiratory infection Problems: Will continue on oral antibiotics Right or Left: Right (2) COPD (chronic obstructive pulmonary disease) Problems: Will start on Spiriva Right or Left: Right (3) Type 2 diabetes mellitus Problems: Will continue with insulin at home and monitoring her diet Right or Left: Right (4) Hypertension Problems: Stable on home meds Right or Left: Right
[2018-07-26] MEDS: SPIRONOLACTONE 25 MG TABLET PO SCH (09:13)
[2018-07-26] MEDS: TOLTERODINE TARTRATE 2 MG CAP.ER.24H PO SCH (09:13)
[2018-07-26] MEDS: VENLAFAXINE HCL 37.5 MG CAP.ER.24H PO SCH (09:14)
[2018-07-26] MEDS: FLUCONAZOLE 150 MG TABLET PO SCH (09:14)
[2018-07-26] MEDS: HYDROCHLOROTHIAZIDE 25 MG TABLET PO SCH (09:14)
[2018-07-26] MEDS: GABAPENTIN 300 MG CAPSULE PO SCH (09:15)
[2018-07-26] MEDS: GABAPENTIN 100 MG CAPSULE PO SCH (09:15)
[2018-07-26] MEDS: METOPROLOL TARTRATE 50 MG TABLET PO SCH (09:15)
[2018-07-26] MEDS: MONTELUKAST SODIUM 10 MG TABLET PO SCH (09:16)
[2018-07-26] MEDS: LISINOPRIL 10 MG TABLET PO SCH (09:16)
[2018-07-26] MEDS: LURASIDONE HCL (NF) 40 MG TABLET PO SCH (09:16)
[2018-07-26] MEDS: BUDESONIDE 0.5MG/2ML AMPUL.NEB NEB SCH (11:05)
[2018-07-26 14:09] VITALS: BP 138/72
== END 2018-07-26 14:14 | disposition home or self-care (01) | DRG 206 ==
LOC: SOUTH 10:31
PROVIDERS: ADMIT Nurse Practitioner Family; ATTEND Nurse Practitioner Family
DX: J98.8 Other specified respiratory disorders (principal); J44.9 Chronic obstructive pulmonary disease, unspecified; E11.65 Type 2 diabetes mellitus with hyperglycemia; I10 Essential (primary) hypertension; E78.5 Hyperlipidemia, unspecified; F17.210 Nicotine dependence, cigarettes, uncomplicated
CPT/HCPCS: 36415; 36600; 71046; 80053; 81002; 82803; 85025; 87040; 87400; 94640; 94760; A9270; J0360; J0456; J0696; J1030; J1815; J2930; J3480; J7030; J7050; J7626; 99221; 99231; 99238; 99283; J2920; S1016

== ENCOUNTER 2019-01-23 08:18 | Outpatient (CLI) | payer MEDICARE, BC ==
[2019-01-23 09:06] LABS: A1C 11.7 % (<5.7)
[2019-01-23 09:14] LABS: eGFR (Non-African) > 60
[2019-01-23 09:15] LABS: HDL 41 mg/dL (>40)
== END 2019-01-23 08:20 ==
LOC: LAB 08:18
PROVIDERS: ATTEND Family Medicine
DX: E11.9 Type 2 diabetes mellitus without complications (principal)
CPT/HCPCS: 36415; 80053; 80061; 83036